=== PATIENT | male | born 1945 | race Caucasian/White ===

== ENCOUNTER 2016-08-23 09:41 | Day surgery (SDC) | payer MEDICARE, BC ==
[~2016-08-23 09:41] MED LIST: BUPIVACAINE HCL 0.75% INJ/PF (7.5 MG/1 ML) 10 ML SDV OD PRN; CHONDR SU A NA/HYALUR INTRAOC KIT (SURGICARE) ONE; KETOROLAC TROMETHAMINE 0.45% 4 DROP/0.4 ML DROPERETTE OD PRN; LIDOCAINE 4% INJ/PF (40 MG/ML) 5 ML AMPUL OD PRN; MIDAZOLAM 2 MG/2 ML INJ ONE; PHENYLEPHRINE/KETOROLAC 1%-0.3% 4 ML VIAL ONE
[2016-08-23] MEDS: TETRACAINE HCL 0.5% OPH SOLN 0.6 ML DROPERETTE OD PRN ×2 (09:55→10:25)
[2016-08-23] MEDS: TROPICAMIDE 1% OPH SOLN 3 ML OD PRN ×3 (09:56→10:20)
[2016-08-23] MEDS: CYCLOPENTOLATE 0.2%/PHENYLEPHRINE 1% OPH SOLN 2 ML OD PRN ×3 (09:56→10:20)
[2016-08-23] MEDS: BESIFLOXACIN HCL 0.6% OPH SUSP 5 ML BOTTLE OD PRN ×4 (09:57→11:03)
[2016-08-23] MEDS ORDERED: LIDOCAINE 1% INJ-PF (10 MG/ML) 30 ML SDV ONE (10:16)
[2016-08-23] MEDS ORDERED: MIDAZOLAM 2 MG/2 ML INJ ONE (10:38)
--- NOTE | 2016-08-23 11:24 | [facility] OPERATIVE REPORT E ---
[facility] Operative Report NAME: DIMAS LOZANO AGE: 71Y DATE OF SURGERY: ROOM: [facility] [place] Operative Report PREOPERATIVE DIAGNOSIS: CATARACT, RIGHT EYE. POSTOPERATIVE DIAGNOSIS: CATARACT, RIGHT EYE. PROCEDURE PERFORMED: PHACOEMULSIFICATION WITH POSTERIOR CHAMBER INTRAOCULAR LENS, RIGHT EYE. SURGEON: TATA ZHU MD ANESTHESIA: TOPICAL WITH MAC, PLUS INTRAOCULAR LIDOCAINE. INDICATIONS FOR SURGERY: Difficulty reading road signs and captions on TV. Best corrected visual acuity, 20/50. PROCEDURE: The patient was brought to the Operating Room and placed on the operative table. Following tetracaine drops, topical anesthesia was administered. This consisted of instrument wipe pledgets soaked in a solution of 4% Xylocaine mixed with 0.75% Marcaine in a 1:2 ratio. A 2 x 1 cm pledget was placed in the superior fornix. A 1 x 1 cm pledget was placed in the inferior fornix. The eye was patched shut for 5 minutes. The patch was removed. The eye was sterilely prepped and draped in the usual manner. Lid speculum was placed in the eye. The pledgets were removed. 4-0 black silk sutures were placed around the superior and the inferior rectus muscles to be used as traction. A conjunctival peritomy was made at the 10 o'clock position. Hemostasis was obtained with bipolar cautery. A posterior limbal groove was created using a crescent knife and dissected anteriorly towards the cornea. A sharp point blade was used to create a paracentesis site at the 2 o'clock position. A 2.4 mm keratome was used to enter the anterior chamber through the groove. Viscoelastic was injected into the anterior chamber. An anterior capsulotomy was performed using Utrata forceps in a capsulorrhexis fashion. Hydrodissection and hydrodelineation were performed. Phacoemulsification was performed in kcrfbd-oac-yymwrmi technique. A total of 52 seconds phaco time was used. Following this, the I/A unit was used to remove residual cortex. Viscoelastic was injected into the capsular bag. Intraocular lens model [id number], 19.0 diopters, serial number [id number] was placed in the capsular bag. The I/A unit was used to remove residual viscoelastic. The wound was seen to be watertight under high and low pressure, and no sutures were placed. The intraocular lens was well centered. The pressure was adjusted in the eye to normal pressure. The 4-0 black silk sutures and lid speculum were removed. The eye was shielded after Besivance drops were placed. The patient tolerated the procedure well and was sent to the Recovery Room in good condition. DICTATING PHYSICIAN: TATA ZHU M.D. DICTATING PHYSICIAN: TATA ZHU M.D. [id number] PHY#: [id number] ID: [id number] JOB#: [id number] ACCT: [id number] cc:TATA ZHU M.D. >
--- NOTE | 2016-08-23 11:24 | [facility] DISCHARGE SUMMARY E ---
[facility] Discharge Summary NAME: DIMAS LOZANO AGE: 71Y ADMITTED: 08/23/2016 DISCHARGED: 08/23/2016 FINAL DIAGNOSIS: Cataract, right eye. HOSPITAL COURSE: The patient is a 71-year-old gentleman who underwent uneventful cataract extraction with intraocular lens implant, right eye, on 08/23/2016. DISPOSITION: The patient was discharged to home. DISCHARGE INSTRUCTIONS: He is instructed to resume preoperative medications, take Tylenol as needed for discomfort, to keep his eye shielded, to use Besivance, Durezol, and Ilevro at 3 p.m. and 8 p.m., and to follow up in my office in 1 day. DICTATING PHYSICIAN: TATA ZHU M.D. [id number] PHY#: [id number] ID: [id number] JOB#: [id number] ACCT: [id number] cc:TATA ZHU M.D. >
== END 2016-08-23 11:51 | disposition home or self-care (01) ==
LOC: SC 09:41
PROVIDERS: ATTEND Ophthalmology
PROC: 08RJ3JZ Replacement of Right Lens with Synthetic Substitute, Percutaneous Approach (ICD-10-PCS; principal; 2016-08-23 11:00)
DX: H25.813 Combined forms of age-related cataract, bilateral (principal); H57.03 Miosis; H40.013 Open angle with borderline findings, low risk, bilateral; H35.363 Drusen (degenerative) of macula, bilateral; H04.123 Dry eye syndrome of bilateral lacrimal glands; E11.9 Type 2 diabetes mellitus without complications; E78.00 Pure hypercholesterolemia, unspecified; E03.9 Hypothyroidism, unspecified; G62.9 Polyneuropathy, unspecified; D51.0 Vitamin B12 deficiency anemia due to intrinsic factor deficiency; I10 Essential (primary) hypertension; G57.93 Unspecified mononeuropathy of bilateral lower limbs; R76.11 Nonspecific reaction to tuberculin skin test without active tuberculosis; Z87.891 Personal history of nicotine dependence; Z79.899 Other long term (current) drug therapy; Z79.84 Long term (current) use of oral hypoglycemic drugs; Z88.1 Allergy status to other antibiotic agents
CPT/HCPCS: 66984; 82962; V2632; J2250; J3490 ×4; A9270; C9447; 142

== ENCOUNTER 2016-09-13 09:36 | Day surgery (SDC) | payer MEDICARE, BC ==
[~2016-09-13 09:36] MED LIST changes: -BUPIVACAINE HCL 0.75% INJ/PF (7.5 MG/1 ML) 10 ML SDV OD PRN; +BUPIVACAINE HCL 0.75% INJ/PF (7.5 MG/1 ML) 10 ML SDV OS PRN; -KETOROLAC TROMETHAMINE 0.45% 4 DROP/0.4 ML DROPERETTE OD PRN; +KETOROLAC TROMETHAMINE 0.45% 4 DROP/0.4 ML DROPERETTE OS PRN; +LIDOCAINE 1% INJ-PF (10 MG/ML) 30 ML SDV ONE; -LIDOCAINE 4% INJ/PF (40 MG/ML) 5 ML AMPUL OD PRN; +LIDOCAINE 4% INJ/PF (40 MG/ML) 5 ML AMPUL OS PRN; -MIDAZOLAM 2 MG/2 ML INJ ONE
[2016-09-13] MEDS: TROPICAMIDE 1% OPH SOLN 3 ML OS PRN ×3 (09:55→10:27)
[2016-09-13] MEDS: CYCLOPENTOLATE 0.2%/PHENYLEPHRINE 1% OPH SOLN 2 ML OS PRN ×3 (09:55→10:27)
[2016-09-13] MEDS: BESIFLOXACIN HCL 0.6% OPH SUSP 5 ML BOTTLE OS PRN ×4 (09:56→11:24)
[2016-09-13] MEDS: TETRACAINE HCL 0.5% OPH SOLN 0.6 ML DROPERETTE OS PRN ×2 (09:57→10:27)
[2016-09-13] MEDS ORDERED: MIDAZOLAM 2 MG/2 ML INJ ONE ×2 (10:18)
--- NOTE | 2016-09-13 12:55 | [facility] OPERATIVE REPORT E ---
[facility] Operative Report NAME: DIMAS LOZANO AGE: 71Y DATE OF SURGERY: 09/13/2016 ROOM: PREOPERATIVE DIAGNOSIS: Cataract left eye, pupil miosis left eye, astigmatism left eye. POSTOPERATIVE DIAGNOSIS: Cataract left eye, pupil miosis left eye, astigmatism left eye. OPERATION: Complex cataract extraction with toric intraocular lens implant left eye. SURGEON: TATA ZHU M.D. ANESTHESIA: Topical with MAC plus intraocular lidocaine. PROCEDURE: Patient was brought to the operating room, placed in the seated position. The 0, 270, and 180 degree axis of the eye was marked using a marking level. Patient was placed in a reclining position and topical anesthesia was administered. This consisted of instrument wipe pledgets soaked in a solution of 4% Xylocaine mixed with 0.75% Marcaine in a 1:1 ratio. A 2 x 1 cm pledget was placed in the superior fornix. A 1 x 1 cm pledget was placed in the inferior fornix. The eye was patched shut for 5 minutes. The patch and pledgets were removed. The eye was sterilely prepped and draped in the usual manner. Lid speculum was placed in the eye. The 4-0 black silk sutures were placed around the superior and inferior rectus muscles to be used as traction. A conjunctival peritomy was made at the 135 degree axis. Hemostasis was obtained with bipolar cautery. A posterior limbal groove was created using a crescent knife and dissected anteriorly towards the cornea. A sharp point blade was used to create a paracentesis starting at the 2 o'clock position. A 2.4 mm keratome was used to enter the anterior chamber through the groove. Viscoelastic was injected into the anterior chamber. Due to poor pupil dilation, the Malyugin ring was placed in the eye stabilizing the iris. An anterior capsulotomy was performed using Utrata forceps in a capsulorrhexis fashion. Hydrodissection and hydrodelineation were performed. Phacoemulsification was performed in a gkjusm-cec-grvlfur technique. A total of 5.60 CDE total phaco time was used. Following this, the I/A unit was used to remove residual cortex. Viscoelastic was injected in the capsular bag. Intraocular lens model [id number], 19.0 diopters, serial number [id number] was placed in the eye and rotated within 10 degrees of the final axis. The 15 degree axis was marked on the eye. The I/A unit was used to remove residual viscoelastic and the lens was rotated to the 15 degree axis and centered nicely. The Myalugin ring was removed from the eye. The wound was seen to be watertight under high and low pressure. No sutures were placed. The 4-0 black silk sutures and the lid speculum were removed. The eye was shielded after Besivance drops were placed. The patient tolerated the procedure well and sent to recovery room in good condition. DICTATING PHYSICIAN: TATA ZHU M.D. [id number] PHY#: [id number] ID: [id number] JOB#: [id number] ACCT: [id number] cc:TATA ZHU M.D. > MTDD
--- NOTE | 2016-09-13 12:57 | [facility] DISCHARGE SUMMARY E ---
[facility] Discharge Summary NAME: DIMAS LOZANO AGE: 71Y ADMITTED: 09/13/2016 DISCHARGED: HOSPITAL COURSE: The patient is a 71-year-old who underwent uneventful complex cataract extraction with toric intraocular lens implant left eye 09/13/2016. He will be discharged to home. He is instructed to resume preoperative medications, take Tylenol as needed for discomfort, to keep his eye shielded, to use Besivance, Durezol, and Ilevro at 3 p.m. and 8 p.m. and follow up in my office in one day. DICTATING PHYSICIAN: TATA ZHU M.D. [id number] PHY#: [id number] ID: [id number] JOB#: [id number] ACCT: [id number] cc:TATA ZHU M.D. >
== END 2016-09-13 12:10 | disposition home or self-care (01) ==
LOC: SC 09:36
PROVIDERS: ATTEND Ophthalmology
PROC: 08RK3JZ Replacement of Left Lens with Synthetic Substitute, Percutaneous Approach (ICD-10-PCS; principal; 2016-09-13 11:00)
DX: H25.812 Combined forms of age-related cataract, left eye (principal); H57.03 Miosis; H52.202 Unspecified astigmatism, left eye; Z96.1 Presence of intraocular lens; E11.9 Type 2 diabetes mellitus without complications; E07.9 Disorder of thyroid, unspecified; Z79.899 Other long term (current) drug therapy; Z79.84 Long term (current) use of oral hypoglycemic drugs
CPT/HCPCS: 66982; 82962; V2787; J2250; J3490 ×4; A9270; C9447; 142

== ENCOUNTER → 2016-11-29 | Outpatient (CLI) | payer MEDICARE, BC ==
--- NOTE | 2016-11-30 08:38 | RADIOLOGY REPORT (SQ) ---
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 TECHNIQUE: Multiplanar imaging includes noncontrasted T1, T2, FLAIR, diffusion with ADC map and post gadolinium contrast T1 sequences. Images stored on PACS. Additional thin section coronal and axial fat-sat T2, pre and postcontrast T1 weighted images were ob tained through the orbits and central skullbase. CONTRAST TYPE AND DOSE: 15 mL Multihance. RENAL FUNCTION: GFR > 60. LIMITATIONS: None. FINDINGS: ANATOMY: No developmental anomalies. Normal vascular flow voids. Pituitary fossa normal. CSF SPACES: Normal in size and contour. No hemorrhage. CEREBRUM: Sulci and gyri normal in size and contour. Normal white matter signal on FLAIR imaging. No evidence of hemorrhage, mass, or extraaxial fluid collection. No abnormal enhancement post contrast. POSTERIOR FOSSA: No signal alteration. No hemorrhage. No edema, masses, or mass effect. Internal miller tory canals, cerebellopontine angles, mastoids normal. No abnormal enhancement post contrast. DIFFUSION IMAGING: Negative for acute or subacute infarction. ORBITS: No masses. Globes post cataract surgery. Optic nerves normal. Extraocular muscles normal. Optic chiasm and radiations unremarkable. Thin section imaging through haile and brainstem demonstrat es no lesions along cranial nerve nuclei PARANASAL SINUSES: Very small mucous or serous retention cysts in the floor of the right and left max illary sinus OTHER: No other significant finding. IMPRESSION: Brain parenchyma unremarkable. Dedicated orbital images unremarkable aside from post cataract surgery. EVIDENCE OF ACUTE STROKE: NO. TECHNICAL DOCUMENTATION: JOB ID: [id number] [employer]- All Rights Reserved
== END ==
LOC: RAD 15:37
PROVIDERS: ATTEND Ophthalmology
DX: H55.09 Other forms of nystagmus (principal)
CPT/HCPCS: 82565; 70553; A9577

== ENCOUNTER → 2018-09-27 | Outpatient (CLI) | payer MEDICARE, BC ==
--- NOTE | 2018-09-27 15:14 | RADIOLOGY REPORT (SQ) ---
EXAM DESCRIPTION: CAROTID DOPPLER COMPLETED DATE/TIME: 09/27/2018 2:44 pm REASON FOR STUDY: DIPLOPIA H53.2 DIPLOPIA COMPARISON: None. TECHNIQUE: Grayscale ultrasound, Doppler velocity and spectra, and color Doppler images acquired of the extra-cranial carotid and vertebral arteries. Images stored on PACS. LIMITATIONS: None. FINDINGS: RIGHT CAROTID CCA Velocities: Within normal limits. ICA Velocities Peak systolic 0.95 m/s. End diastolic 0.35 m/s. Proximal ICA/CCA peak systolic ratio 1.4. There is calcified plaque in the carotid bulb and proximal ICA. LEFT CAROTID CCA Velocities: Within normal limits. ICA Velocities Peak systolic 0.68 m/s. End diastolic 0.27 m/s. Proximal ICA/CCA peak systolic ratio 1.0. There is calcified plaque in the proximal ICA. VERTEBRAL ARTERIES: Antegrade flow. Normal waveforms. SUBCLAVIAN ARTERIES: No finding. OTHER: No other significant finding. IMPRESSION: NO HEMODYNAMICALLY SIGNIFICANT STENOSIS. COMMENT: Quality ID #[id number]: Velocity criteria are extrapolated from the diameter data as defined by t he Society of Radiologists in Ultrasound Consensus Conference. Radiology 2003: 229; 340-346. TECHNICAL DOCUMENTATION: JOB ID: [id number] [employer]- All Rights Reserved Reading location - IP/workstation name: [email or web address]
== END ==
LOC: SP 12:32
PROVIDERS: ATTEND Ophthalmology
DX: H53.2 Diplopia (principal)
CPT/HCPCS: 93880